=== PATIENT | female | born 1945 | race Two or more races ===

== ENCOUNTER 2016-10-22 15:38 | Emergency (ER) | payer MEDICARE, OTHER ==
[~2016-10-22] VITALS: Ht 157.5 cm; Wt 67.3 kg
[~2016-10-22 15:38] MED LIST: FOSI10 PO; FOSI20TA3 PO; LORA5TAB9 PO; METO5SOL2 PO; PRAV20TA4 PO; RANI150C4 PO
[2016-10-22] MEDS ORDERED: FOSI20 PO (16:10)
[2016-10-22] MEDS ORDERED: ACETAMINOPHEN 325 MG TABLET PO ONE (18:00)
[2016-10-22 19:25] VITALS: BP 119/65
== END 2016-10-22 19:30 | disposition home or self-care (01) ==
LOC: EMS 15:40
DX: J40 Bronchitis, not specified as acute or chronic (principal); J06.9 Acute upper respiratory infection, unspecified; I10 Essential (primary) hypertension; E78.00 Pure hypercholesterolemia, unspecified
CPT/HCPCS: 71020; 99284

== ENCOUNTER 2016-11-13 05:14 | Emergency (ER) | payer MEDICARE, OTHER ==
[~2016-11-13] VITALS: Ht 165.1 cm; Wt 70.9 kg
[~2016-11-13 05:14] MED LIST changes: -FOSI10 PO; +FOSI20 PO; -FOSI20TA3 PO
[2016-11-13 05:51] LABS: BASOPHILS % (AUTO) 0.4 % (0.0-2.0); EOSINOPHILS % (AUTO) 6.4 % (1.0-6.0); HEMOGLOBIN 13.5 g/dL (12.0-16.0); LYMPHOCYTES # (AUTO) 1.9 K/uL (1.0-4.8); LYMPHOCYTES % (AUTO) 29.2 % (22.0-44.0); MEAN CORPUSCULAR HEMOGLOBIN 31.3 pg (26.0-34.0); MEAN CORPUSCULAR HGB CONC 33.8 G/dL (31.0-37.0); MEAN CORPUSCULAR VOLUME 93 fL (80-100); MONOCYTES # (AUTO) 0.5 K/uL (0.1-1.0); MONOCYTES % (AUTO) 7.6 % (2.0-9.0); NEUTROPHILS # (AUTO) 3.6 K/uL (1.8-7.7); NEUTROPHILS % (AUTO) 56.4 % (40.0-70.0); PLATELET COUNT (AUTO) 247 K/uL (150-450); RED BLOOD CELL COUNT(AUTO) 4.32 MIL/uL (4.00-5.20); WHITE BLOOD COUNT (AUTO) 6.4 K/uL (4.5-11.0)
[2016-11-13 06:04] LABS: CALCIUM, TOTAL 8.7 mg/dL (8.8-10.5); CREATININE 1.01 mg/dL (0.60-1.30); POTASSIUM 3.5 mmol/L (3.5-5.1)
[2016-11-13 06:09] LABS: ALBUMIN 3.8 g/dL (3.4-5.0); BILIRUBIN,TOTAL 0.4 mg/dL (0.1-1.0); TOTAL PROTEIN, SERUM 7.4 g/dL (6.4-8.2)
[2016-11-13 06:22] LABS: APPEARANCE,URINE CLEAR (CLEAR); GLUCOSE, URINE (UA) NEGATIVE (NEGATIVE); KETONES,URINE NEGATIVE (NEGATIVE); LEUKOCYTE ESTERASE ,URINE TRACE (NEGATIVE); OCCULT BLOOD,URINE TRACE (NEGATIVE); PROTEIN,URINE NEGATIVE (NEGATIVE)
[2016-11-13 06:26] LABS: ADD UA MICROSCOPIC YES
[2016-11-13] MEDS ORDERED: DONNATAL/LIDOCAINE/MAALOX 55 ML BOTTLE PO ONE (06:30)
[2016-11-13] MEDS ORDERED: PANTOPRAZOLE SODIUM 40 MG DR TABLET PO ONE (06:30)
[2016-11-13 06:32] LABS: TRANSITIONAL EPI CELLS,URINE Few /LPF (None Seen); WBC,URINE 0-2 /HPF (0-5)
[2016-11-13 07:02] VITALS: BP 144/76
== END 2016-11-13 07:08 | disposition home or self-care (01) ==
LOC: EMS 05:15
DX: K21.9 Gastro-esophageal reflux disease without esophagitis (principal); I10 Essential (primary) hypertension; E78.00 Pure hypercholesterolemia, unspecified
CPT/HCPCS: 93005; 99285

== ENCOUNTER 2016-12-16 21:21 | Emergency (ER) | payer MEDICARE, OTHER ==
[~2016-12-16] VITALS: Ht 152.4 cm; Wt 59.1 kg
[2016-12-16] MEDS ORDERED: LEVO25TA4 PO (21:27)
[2016-12-16 23:02] VITALS: BP 154/87
== END 2016-12-16 23:03 | disposition home or self-care (01) ==
LOC: EMS 21:22
DX: B37.3 Candidiasis of vulva and vagina (principal); I10 Essential (primary) hypertension; E03.9 Hypothyroidism, unspecified; E78.00 Pure hypercholesterolemia, unspecified
CPT/HCPCS: 99283

== ENCOUNTER 2017-10-06 22:40 | Emergency (ER) | payer MEDICARE, OTHER ==
[~2017-10-06] VITALS: Ht 154.9 cm; Wt 63.6 kg
[~2017-10-06 22:40] MED LIST changes: +LEVO25TA4 PO
[2017-10-06 22:46] VITALS: BP 148/82
[2017-10-06] MEDS ORDERED: HYDR25TA PO (22:55)
[2017-10-06] MEDS ORDERED: LOSA50TA37 PO (22:55)
[2017-10-06 23:40] LABS: APPEARANCE,URINE CLEAR (CLEAR); BILIRUBIN,URINE NEGATIVE (NEGATIVE); GLUCOSE, URINE (UA) NEGATIVE (NEGATIVE); KETONES,URINE NEGATIVE (NEGATIVE); LEUKOCYTE ESTERASE ,URINE TRACE (NEGATIVE); NITRATE,URINE NEGATIVE (NEGATIVE); OCCULT BLOOD,URINE NEGATIVE (NEGATIVE); PH,URINE 7.5 (5.0-8.0); PROTEIN,URINE NEGATIVE (NEGATIVE); UROBILINOGEN,URINE 0.2 mg/dL (<=1.0)
[2017-10-07] LABS: BACTERIA,URINE None Seen /HPF (None Seen); RBC,URINE None Seen /HPF (0-2); WBC,URINE 0-2 /HPF (0-5)
[2017-10-07 00:01] LABS: SQUAMOUS EPITHELIAL CELL,UR Rare /LPF (None Seen)
== END 2017-10-07 01:50 | disposition home or self-care (01) ==
LOC: EMS 22:42
DX: N81.4 Uterovaginal prolapse, unspecified (principal); E78.00 Pure hypercholesterolemia, unspecified; I10 Essential (primary) hypertension; E03.9 Hypothyroidism, unspecified
CPT/HCPCS: 99283

== ENCOUNTER 2017-10-20 16:27 | Emergency (ER) | payer MEDICARE, OTHER ==
[~2017-10-20] VITALS: Ht 157.5 cm; Wt 68.2 kg
[~2017-10-20 16:27] MED LIST changes: -FOSI20 PO; +HYDR25TA PO; -LEVO25TA4 PO; +LOSA50TA37 PO; -PRAV20TA4 PO
[2017-10-20] MEDS ORDERED: IBUPROFEN 600 MG TABLET PO ONE (18:15)
[2017-10-20 18:23] VITALS: BP 139/88
== END 2017-10-20 19:01 | disposition home or self-care (01) ==
LOC: EMS 16:29
DX: N81.4 Uterovaginal prolapse, unspecified (principal); E78.00 Pure hypercholesterolemia, unspecified; I10 Essential (primary) hypertension; E03.9 Hypothyroidism, unspecified
CPT/HCPCS: 99282

== ENCOUNTER 2018-10-05 10:50 | Emergency (ER) | payer MEDICARE, OTHER ==
[~2018-10-05] VITALS: Ht 152.4 cm; Wt 62.3 kg
[~2018-10-05 10:50] MED LIST changes: -LOSA50TA37 PO; +LOSA50TA64 PO
[2018-10-05] MEDS ORDERED: LEVO25TA9 PO (11:00)
[2018-10-05] MEDS ORDERED: MECL-111 PO (11:00)
[2018-10-05] MEDS ORDERED: ATOR20TA86 PO (11:00)
[2018-10-05] MEDS ORDERED: OMEP20 PO (11:00)
[2018-10-05 11:39] LABS: BASOPHILS % (AUTO) 0.2 % (0.0-2.0); EOSINOPHILS % (AUTO) 0 % (1.0-6.0); HEMATOCRIT 40.3 % (36-46); LYMPHOCYTES # (AUTO) 1.3 K/uL (1.0-4.8); LYMPHOCYTES % (AUTO) 7.6 % (22.0-44.0); MEAN CORPUSCULAR HEMOGLOBIN 31.6 pg (26.0-34.0); MEAN CORPUSCULAR HGB CONC 34.6 G/dL (31.0-37.0); MEAN CORPUSCULAR VOLUME 91 fL (80-100); MONOCYTES # (AUTO) 0.8 K/uL (0.1-1.0); MONOCYTES % (AUTO) 4.9 % (2.0-9.0); PLATELET COUNT (AUTO) 237 K/uL (150-450); RED BLOOD CELL COUNT(AUTO) 4.42 MIL/uL (4.00-5.20)
[2018-10-05 11:42] LABS: NEUTROPHILS % (AUTO) 87.3 % (40.0-70.0)
[2018-10-05 11:50] LABS: INR 1.1 (0.9-1.1)
[2018-10-05 11:52] LABS: CALCIUM, TOTAL 9.3 mg/dL (8.8-10.5); CREATININE 0.96 mg/dL (0.60-1.30); POTASSIUM 3.1 mmol/L (3.5-5.1)
[2018-10-05 11:58] LABS: ALBUMIN 3.8 g/dL (3.4-5.0); BILIRUBIN,TOTAL 1.1 mg/dL (0.1-1.0); TOTAL PROTEIN, SERUM 7.8 g/dL (6.4-8.2)
[2018-10-05] MEDS ORDERED: SODIUM CHLORIDE 0.9% 1,000 ML IV ONE ×2 (12:30→15:00)
[2018-10-05] MEDS ORDERED: KETOROLAC TROMETHAMINE 30 MG/ML VIAL IVP ONE (12:30)
[2018-10-05] MEDS ORDERED: ONDANSETRON HCL 4 MG/2 ML VIAL IVP ONE ×2 (12:30→17:45)
[2018-10-05] MEDS ORDERED: ACETAMINOPHEN 500 MG TABLET PO ONE (12:30)
[2018-10-05 12:42] LABS: APPEARANCE,URINE TURBID (CLEAR); BILIRUBIN,URINE NEGATIVE (NEGATIVE); GLUCOSE, URINE (UA) NEGATIVE (NEGATIVE); KETONES,URINE TRACE mg/dL (NEGATIVE); LEUKOCYTE ESTERASE ,URINE LARGE (NEGATIVE); NITRATE,URINE POSITIVE (NEGATIVE); OCCULT BLOOD,URINE LARGE (NEGATIVE); PH,URINE 5.5 (5.0-8.0); PROTEIN,URINE SEE CONFIRM (NEGATIVE)
[2018-10-05 12:47] LABS: SULFOSALICYLIC ACID,URINE Trace (Negative)
[2018-10-05 12:50] LABS: BACTERIA,URINE Moderate /HPF (None Seen); SQUAMOUS EPITHELIAL CELL,UR Few /LPF (None Seen); WBC,URINE >100 /HPF (0-5)
[2018-10-05] MEDS ORDERED: PIPERACILLIN/TAZO 3.375 GM/D5W 50 ML IV ONE (14:45)
[2018-10-05 19:23] VITALS: BP 137/48
== END 2018-10-05 19:56 | disposition short-term general hospital (02) ==
LOC: EMS 10:51
DX: N12 Tubulo-interstitial nephritis, not specified as acute or chronic (principal); I10 Essential (primary) hypertension; E78.00 Pure hypercholesterolemia, unspecified; E03.9 Hypothyroidism, unspecified; Z79.899 Other long term (current) drug therapy
CPT/HCPCS: 36415; 71045; 74176; 80053; 81001; 81002; 83690; 83880; 84484; 85025; 85610; 85730; 87077; 87086; 87186; 93005; 96361; 96365; 96375; 96376; 99285; J1885; J2405; J2543; J7030